=== PATIENT | male | born 1955 | race Caucasian/White ===

== ENCOUNTER 2018-02-01 13:56 | Outpatient (CLI) | payer MEDICAID, SELFPAY ==
[2018-02-02 10:08] LABS: PSA, Diagnostic 3.2 ng/ml (0-4.5)
== END 2018-02-01 14:16 ==
PROVIDERS: PCP Family Medicine; Visit Provider Urology
DX: C61 Malignant neoplasm of prostate (principal); D48.0 Neoplasm of uncertain behavior of bone and articular cartilage
CPT/HCPCS: 36415; 84153

== ENCOUNTER 2018-04-24 14:16 | Outpatient (CLI) | payer MEDICAID, SELFPAY ==
[2018-04-25 09:57] LABS: PSA, Diagnostic 8.7 ng/ml (0-4.5)
== END 2018-04-24 14:36 ==
PROVIDERS: Nurse Practitioner Gerontology; PCP Family Medicine; Visit Provider Urology
DX: C61 Malignant neoplasm of prostate (principal); C79.51 Secondary malignant neoplasm of bone
CPT/HCPCS: 36415; 84153

== ENCOUNTER 2018-05-09 12:14 | Outpatient (CLI) | payer MEDICAID, SELFPAY ==
[2018-05-09 12:44] LABS: Abs Immature Grans 0.01 k/cumm (0.0-0.09); Absolute Basophil Count 0.02 k/cumm (0.0-0.2); Absolute Lymphocyte Count 1.64 k/cumm (1.2-3.4); Absolute Monocyte Count 0.46 k/cumm (0.11-0.7); Absolute Neutrophil Count 3.09 k/cumm (1.2-6.7); Basophils % 0.4; Eosinophils % 1.9; HCT 40.9 % (40.0-50.0); Immature Grans % 0.2; Lymphocytes % 30.8; Mean Corp. HGB Concentration 34.2 g/dL (32.0-36.0); Mean Corpuscular Hemoglobin 29.2 pg (27.0-33.0); Mean Corpuscular Volume 85.4 fL (80-95); Mean Platelet Volume 9.9 fL (8.0-11.0); Monocytes % 8.6; Neutrophils % 58.1; Platelet Count 184 x1000/uL (130-400); RBC 4.79 m/cumm (4.50-6.00); RBC Distribution Width 12.4 % (11.8-14.1); White Blood Cell Count 5.32 k/cumm (4.4-10.8)
[2018-05-09 13:00] LABS: ALT 39 U/L (12-78); AST 21 U/L (15-37); Albumin 3.9 g/dL (3.4-5.0); Alkaline Phosphatase 53 U/L (46-116); Anion Gap 6.7 mmol/L (3-11); BUN 16 mg/dL (7-18); Bilirubin, Total 0.3 mg/dL (0.2-1.0); CO2 34.3 mmol/L (21.0-32.0); CREATININE 1.02 mg/dL (0.70-1.30); Chloride 103 mmol/L (98-107); Glucose 99 mg/dL (70-100); Potassium 3.9 mmol/L (3.5-5.1); Sodium 144 mmol/L (136-145); Total Protein 7.6 g/dL (6.4-8.2)
[2018-05-10 08:53] LABS: PSA, Diagnostic 8.8 ng/ml (0-4.5)
[2018-05-12 15:22] LABS: Testosterone, Total 11 ng/dL (240-950)
== END 2018-05-09 12:34 ==
PROVIDERS: PCP Family Medicine; Visit Provider Internal Medicine
DX: Z13.1 Encounter for screening for diabetes mellitus (principal); C61 Malignant neoplasm of prostate; C79.51 Secondary malignant neoplasm of bone; Z00.00 Encounter for general adult medical examination without abnormal findings
CPT/HCPCS: 36415; 80053; 82306; 84403; 83036; 84153; 85025

== ENCOUNTER 2018-05-15 00:19 | Outpatient (CLI) | payer MEDICAID, SELFPAY ==
--- NOTE | 2018-05-15 10:00 | DI.NM_ITS ---
SYMPTOMS/DIAGNOSIS: RESTAGING OF METASTATIC PROSTATE CA, C61, C79.51 WHOLE BODY BONE SCAN: Comparison is 11/03/17. Comparison CT scan is 05/15/18. There is normal activity again seen in the kidneys and urinary bladder. Increased radiotracer uptake is again seen in the right iliac bone, consistent with osseous metastatic disease. Increased radiotracer uptake is again seen in the shoulders and sternoclavicular joints bilaterally. This appears stable. Mild radiotracer uptake is again seen in the knees and feet bilaterally, which likely reflects degenerative changes. Two new areas of increased radiotracer uptake are seen in the anterior aspects of the left 8th and 9th ribs. Comparison CT scan performed the same day shows healing fractures. IMPRESSION: 1. Stable radiotracer uptake in the axial and appendicular skeleton consistent with osseous metastatic disease. 2. Two new areas of increased radiotracer uptake in the left 8th and 9th ribs. Correlation with the CT scan performed the same day shows these areas are consistent with healing fractures.
--- NOTE | 2018-05-15 10:30 | DI.CT_ITS ---
SYMPTOM/DIAGNOSIS: RESTAGING OF METASTATIC PROSTATE CA, C61, C79.51 CT CHEST, ABDOMEN AND PELVIS: Most recent CT scan comparison is from 02/22/2012 CT ABDOMEN AND PELVIS: The liver is normal in size. No evidence of an hepatic mass. The portal and superior mesenteric veins are patent. There is a stone seen within the gallbladder. No biliary ductal dilatation is present. The pancreas and peripancreatic soft tissues are unremarkable as are the spleen and adrenal glands. The kidneys show normal and symmetric enhancement. No evidence of a solid renal mass or obstruction. There is a 1.2 cm cyst arising from the lower pole of the left kidney. The urinary bladder is intact. Reproductive organs are unremarkable. The bowel shows no evidence of obstruction or inflammation. No evidence of an acute appendicitis are present. The abdominal aorta is of normal caliber. No significant abdominal or pelvic adenopathy, ascites or pneumoperitoneum is seen. Note is made of a small fat containing left inguinal hernia. There are sclerotic foci seen in the pelvis most suggestive of osseous metastatic disease. Degenerative changes are present in the spine. No acute fracture or subluxation is present. IMPRESSION: 1. Findings consistent with osseous metastatic disease 2. No intra-abdominal or pelvic metastatic disease. 3. Incidental note is made of cholelithiasis, no biliary ductal dilatation CT CHEST: No priors for comparison The thoracic aorta is of normal caliber. Heart size is within normal limits. No significant pericardial effusion seen. No significant thoracic adenopathy, pleural effusion or pneumothorax is identified. There is a 0.6 cm noncalcified pulmonary nodule in the right middle lobe. No other noncalcified pulmonary nodules are seen. No infiltrates are present. The tracheobronchial tree is unremarkable. Degenerative changes are seen in the spine. There appear to be healing fractures involving the left 8th and 9th ribs anteriorly. Sclerotic foci are seen in the upper lumbar spine. IMPRESSION; 1. Findings consistent with osseous metastatic disease 2. 0.6 cm pulmonary nodule in the right middle lobe. Comparison should be made with prior examinations 3. Healing fractures involving the left 8th and 9th ribs.
[2018-05-15] MEDS: Omnipaque 350 MG/ML 100 ML BTL IJ (10:40)
== END 2018-05-15 00:39 ==
PROVIDERS: PCP Family Medicine; Visit Provider Internal Medicine
DX: C61 Malignant neoplasm of prostate (principal); C79.51 Secondary malignant neoplasm of bone; S22.42XD Multiple fractures of ribs, left side, subsequent encounter for fracture with routine healing; K80.20 Calculus of gallbladder without cholecystitis without obstruction; R91.1 Solitary pulmonary nodule; Z12.89 Encounter for screening for malignant neoplasm of other sites
CPT/HCPCS: 74177; 78306; 71260; J3490

== ENCOUNTER 2018-06-12 14:24 | Outpatient (CLI) | payer MEDICAID, SELFPAY ==
[2018-06-12 14:50] LABS: HCT 40.2 % (40.0-50.0); HGB 13.6 g/dL (13.5-17.5); Mean Corp. HGB Concentration 33.8 g/dL (32.0-36.0); Mean Corpuscular Hemoglobin 29.1 pg (27.0-33.0); Mean Corpuscular Volume 85.9 fL (80-95); Mean Platelet Volume 9.8 fL (8.0-11.0); Platelet Count 196 x1000/uL (130-400); RBC 4.68 m/cumm (4.50-6.00); RBC Distribution Width 12.3 % (11.8-14.1); White Blood Cell Count 5.51 k/cumm (4.4-10.8)
[2018-06-12 15:08] LABS: ALT 26 U/L (12-78); AST 15 U/L (15-37); Albumin 3.7 g/dL (3.4-5.0); Alkaline Phosphatase 52 U/L (46-116); Anion Gap 4.2 mmol/L (3-11); BUN 16 mg/dL (7-18); Bilirubin, Total 0.3 mg/dL (0.2-1.0); CO2 32.8 mmol/L (21.0-32.0); CREATININE 1.19 mg/dL (0.70-1.30); Calcium 8.9 mg/dL (8.5-10.1); Chloride 104 mmol/L (98-107); Glucose 96 mg/dL (70-100); Potassium 3.9 mmol/L (3.5-5.1); Sodium 141 mmol/L (136-145); Total Protein 7.3 g/dL (6.4-8.2)
== END 2018-06-12 14:44 ==
PROVIDERS: PCP Family Medicine; Visit Provider Internal Medicine
DX: C61 Malignant neoplasm of prostate (principal); C79.51 Secondary malignant neoplasm of bone
CPT/HCPCS: 36415; 80053; 85027

== ENCOUNTER 2018-06-29 08:31 | Outpatient (CLI) | payer MEDICAID, SELFPAY ==
[2018-06-29 09:12] LABS: Abs Immature Grans 0.02 k/cumm (0.0-0.09); Absolute Basophil Count 0.03 k/cumm (0.0-0.2); Absolute Eosinophil Count 0.08 k/cumm (0.0-0.7); Absolute Lymphocyte Count 1.19 k/cumm (1.2-3.4); Absolute Monocyte Count 0.54 k/cumm (0.11-0.7); Absolute Neutrophil Count 2.64 k/cumm (1.2-6.7); Basophils % 0.7; Eosinophils % 1.8; HCT 43.4 % (40.0-50.0); HGB 14.5 g/dL (13.5-17.5); Immature Grans % 0.4; Lymphocytes % 26.4; Mean Corp. HGB Concentration 33.4 g/dL (32.0-36.0); Mean Corpuscular Hemoglobin 28.7 pg (27.0-33.0); Mean Corpuscular Volume 85.8 fL (80-95); Mean Platelet Volume 10.2 fL (8.0-11.0); Neutrophils % 58.7; Platelet Count 187 x1000/uL (130-400); RBC 5.06 m/cumm (4.50-6.00); RBC Distribution Width 12.7 % (11.8-14.1)
[2018-06-29 09:23] LABS: ALT 28 U/L (12-78); AST 19 U/L (15-37); Alkaline Phosphatase 55 U/L (46-116); Anion Gap 8.8 mmol/L (3-11); BUN 17 mg/dL (7-18); Bilirubin, Total 0.6 mg/dL (0.2-1.0); CO2 32.2 mmol/L (21.0-32.0); CREATININE 1.11 mg/dL (0.70-1.30); Calcium 9.1 mg/dL (8.5-10.1); Chloride 102 mmol/L (98-107); Glucose 76 mg/dL (70-100); Potassium 4.2 mmol/L (3.5-5.1); Sodium 143 mmol/L (136-145); Total Protein 7.9 g/dL (6.4-8.2)
[2018-06-29 09:46] LABS: Hemoglobin A1C 5.9 % (4.5-6.2)
[2018-06-30 09:57] LABS: PSA, Diagnostic 2.7 ng/ml (0-4.5)
[2018-07-02 14:58] LABS: Testosterone, Total <7.0 ng/dL (240-950)
== END 2018-06-29 08:51 ==
PROVIDERS: PCP Family Medicine; Visit Provider Internal Medicine
DX: E11.9 Type 2 diabetes mellitus without complications (principal); C61 Malignant neoplasm of prostate; C79.51 Secondary malignant neoplasm of bone
CPT/HCPCS: 36415; 80053; 84403; 83036; 84153; 85025

== ENCOUNTER 2018-08-07 01:37 | Outpatient (CLI) | payer MEDICAID, SELFPAY ==
--- NOTE | 2018-08-07 09:43 | DI.US_ITS ---
SYMPTOMS/DIAGNOSIS: DIZZINESS AND GIDDINESS, R42 CAROTID ULTRASOUND: Routine examination was performed. On the right, no significant calcific plaque is seen. No hemodynamically significant velocity elevations are present. The right vertebral artery is antegrade. On the left, there is mild calcific plaque seen in the carotid bulb. No hemodynamically significant velocity elevations are seen. The left vertebral artery is antegrade. IMPRESSION: No evidence of a hemodynamically significant cervical carotid artery stenosis.
== END 2018-08-07 01:57 ==
PROVIDERS: PCP Family Medicine; Visit Provider Family Medicine
DX: R42 Dizziness and giddiness (principal)
CPT/HCPCS: 93880

== ENCOUNTER 2018-08-15 00:43 | Outpatient (CLI) | payer MEDICAID, SELFPAY ==
--- NOTE | 2018-08-15 07:30 | MERGE_ITS ---
*[facility]* *[facility]* [address] [place] [address] Date of study: 08/15/2018 Transthoracic Echocardiography M-mode, complete 2D, complete spectral Doppler, and color Doppler *STUDY CONCLUSIONS* Summary: 1. Left ventricle: The cavity size was normal. Wall thickness was increased in a pattern of mild LVH. Systolic function was normal. The estimated ejection fraction was 60-65%. Wall motion was normal; there were no regional wall motion abnormalities. 2. Aortic valve: Trileaflet; mildly thickened, mildly calcified leaflets. There was mild to moderate stenosis. There was mild regurgitation. Peak velocity (S): 2m/sec. Mean gradient (S): 10mm Hg. VTI ratio of LVOT to aortic valve: 0.46. Valve area (VTI): 1.4cm^2. 3. Left atrium: The atrium was mildly dilated. 4. Right ventricle: The cavity size was normal. Wall thickness was normal. Systolic function was normal. 5. Tricuspid valve: There was mild-moderate regurgitation. 6. Pulmonary arteries: Pulmonary systolic pressure was mildly increased, in the range of 35mm Hg to 40mm Hg. *PATIENT PRESENTATION* Height: 177.8cm ((70in) ) S/D Pressure: 113 / 66 Weight: 95.7kg ((210.6lb) ) BSA: 2.2m^2 Test start time: 07:40 AM. Test stop time: 08:40 AM. ORDERING Shara Begum REFERRING Shara Begum PERFORMING Unknown PERFORMING [facility] SERVICE OPERATOR RT Shorty LockR)(CT), RD *PROCEDURE DATA* Procedure information: This study was interpreted by [facility]. Pertinent images and digital data are archived for permanent storage and are available for subsequent review. Comparison was made to the study of 07/03/2015. Study status: Routine. Transthoracic echocardiography. M-mode, complete 2D, complete spectral Doppler, and color Doppler. A Transthoracic Echocardiogram was performed. Scanning was performed from the parasternal, apical, subcostal, and suprasternal notch acoustic windows. Images were obtained using an [id number] cardiac ultrasound machine. Image quality was adequate. Study completion: The patient tolerated the procedure well. There were no complications. History: PMH: Hypotension i95.9. *CARDIAC ANATOMY* Left ventricle: The cavity size was normal. Wall thickness was increased in a pattern of mild LVH. Systolic function was normal. The estimated ejection fraction was 60-65%. Wall motion was normal; there were no regional wall motion abnormalities. Findings consistent with diastolic dysfunction. Aortic valve: Trileaflet; mildly thickened, mildly calcified leaflets. Valve mobility was restricted. Doppler: There was mild to moderate stenosis. There was mild regurgitation. VTI ratio of LVOT to aortic valve: 0.46. Valve area (VTI): 1.4cm^2. Indexed valve area (VTI): 0.7cm^2/m^2. Peak velocity ratio of LVOT to aortic valve: 0.48. Valve area (Vmax): 1.5cm^2. Indexed valve area (Vmax): 0.7cm^2/m^2. Mean velocity ratio of LVOT to aortic valve: 0.45. Valve area (Vmean): 1.4cm^2. Indexed valve area (Vmean): 0.6cm^2/m^2. Mean gradient (S): 10mm Hg. Peak gradient (S): 15.7mm Hg. Aorta: Aortic root: The aortic root was normal in size. Ascending aorta: The ascending aorta was normal in size. Mitral valve: Mildly calcified annulus. Mobility was not restricted. Doppler: Transvalvular velocity was within the normal range. There was no evidence for stenosis. There was trivial regurgitation. Valve area by pressure half-time: 3.5cm^2. Indexed valve area by pressure half-time: 1.6cm^2/m^2. Peak gradient (D): 3.9mm Hg. Left atrium: The atrium was mildly dilated. Right ventricle: The cavity size was normal. Wall thickness was normal. Systolic function was normal. Pulmonic valve: Doppler: Transvalvular velocity was within the normal range. There was no evidence for stenosis. There was no significant regurgitation. Peak gradient (S): 3.5mm Hg. Tricuspid valve: Structurally normal valve. Doppler: Transvalvular velocity was within the normal range. There was no evidence for stenosis. There was mild-moderate regurgitation. Pulmonary artery: Pulmonary systolic pressure was mildly increased, in the range of 35mm Hg to 40mm Hg. Right atrium: The atrium was normal in size. Pericardium: There was no pericardial effusion. Systemic veins: Inferior vena cava: Well visualized. The vessel was patent and normal in size. The respirophasic diameter changes were in the normal range (greater than or equal to 50%). Baseline ECG: Normal sinus rhythm. Measurements Left ventricle Value Reference LV ID, ED, PLAX 5.3 cm 3.5 - 6.0 LV ID, ES, PLAX 3.4 cm 2.1 - 4.0 LV PW thickness, ED, PLAX 1.2 cm LV end-diastolic volume, 1-p A2C 110 ml LV ejection fraction, 1-p A2C 64 % LV end-diastolic volume, 1-p A4C 135 ml LV ejection fraction, 1-p A4C 62 % LV e', lateral 0.06 m/sec LV E/e', lateral 16 LV e', medial 0.056 m/sec LV E/e', medial 17 LV e', average 0.058 m/sec LV E/e', average 17 Ventricular septum Value Reference IVS thickness, ED, PLAX 1.2 cm LVOT Value Reference LVOT ID, A-P 2.0 cm LVOT area 3.1 cm^2 LVOT peak velocity, S 0.96 m/sec LVOT mean velocity, S 0.69 m/sec LVOT VTI, S 21.0 cm LVOT peak gradient, S 3.7 mm Hg LVOT mean gradient, S 2.2 mm Hg Stroke volume (SV), LVOT DP 66 ml Stroke index (SV/bsa), LVOT DP 30 ml/m^2 Aortic valve Value Reference Aortic valve peak velocity, S 2 m/sec Aortic valve mean velocity, S 1.53 m/sec Aortic valve VTI, S 46.0 cm Aortic mean gradient, S 10 mm Hg Aortic peak gradient, S 15.7 mm Hg VTI ratio, LVOT/AV 0.46 Aortic valve area, VTI 1.4 cm^2 Velocity ratio, peak, LVOT/AV 0.48 Aortic valve area, peak velocity 1.5 cm^2 Velocity ratio, mean, LVOT/AV 0.45 Aortic valve area, mean velocity 1.4 cm^2 Aortic valve area/bsa, mean velocity 0.6 cm^2/m^2 Aorta Value Reference Aortic root ID, ED 3.5 cm Ascending aorta ID, A-P, S 3.4 cm Left atrium Value Reference LA ID, A-P, ES 3.4 cm LA ID/bsa, A-P 1.5 cm/m^2 <=2.2 LA area, ES, A4C (H) 23.6 cm^2 8.8 - 23.4 LA area, ES, A2C 21 cm^2 LA volume/bsa, ES, 1-p A4C 40 ml/m^2 LA volume, ES, 2-p 69 ml LA volume/bsa, ES, 2-p 31 ml/m^2 LA/aortic root ratio 0.96 Mitral valve Value Reference Mitral E-wave peak velocity 0.98 m/sec Mitral A-wave peak velocity 1.02 m/sec Mitral deceleration time 218 ms 150 - 230 Mitral pressure half-time 63 ms Mitral peak gradient, D 3.9 mm Hg Mitral E/A ratio, peak 0.96 Mitral valve area, PHT, DP 3.5 cm^2 Pulmonary veins Value Reference Pulmonary vein peak velocity, S 0.6 m/sec Pulmonary vein peak velocity, D 0.54 m/sec Pulmonary vein velocity ratio, peak, 1.12 S/D Pulmonary vein A-wave reversal peak 0.31 m/sec velocity Tricuspid valve Value Reference Tricuspid regurg peak velocity 2.8 m/sec Tricuspid peak RV-RA gradient 32.2 mm Hg Right atrium Value Reference RA area, ES, A4C 18 cm^2 8.3 - 19.5 Pulmonic valve Value Reference Pulmonic peak gradient, S 3.5 mm Hg Legend: (L) and (H) joey values outside specified reference range. I have personally reviewed the images and have reviewed and edited the reported findings. Electronically signed by Andrez Morales 08/15/2018 10:47
== END 2018-08-15 01:03 ==
PROVIDERS: PCP Family Medicine; Visit Provider Family Medicine
DX: I95.9 Hypotension, unspecified (principal); I35.2 Nonrheumatic aortic (valve) stenosis with insufficiency; I36.1 Nonrheumatic tricuspid (valve) insufficiency
CPT/HCPCS: 93306

== ENCOUNTER 2018-08-16 14:26 | Outpatient (CLI) | payer MEDICAID, SELFPAY ==
[2018-08-16 14:44] LABS: Abs Immature Grans 0.02 k/cumm (0.0-0.09); Absolute Basophil Count 0.02 k/cumm (0.0-0.2); Absolute Eosinophil Count 0.06 k/cumm (0.0-0.7); Absolute Lymphocyte Count 1.47 k/cumm (1.2-3.4); Absolute Monocyte Count 0.71 k/cumm (0.11-0.7); Absolute Neutrophil Count 5.81 k/cumm (1.2-6.7); Basophils % 0.2; Eosinophils % 0.7; HGB 13.2 g/dL (13.5-17.5); Immature Grans % 0.2; Lymphocytes % 18.2; Mean Corp. HGB Concentration 34.7 g/dL (32.0-36.0); Mean Corpuscular Hemoglobin 29.7 pg (27.0-33.0); Mean Corpuscular Volume 85.4 fL (80-95); Mean Platelet Volume 9.9 fL (8.0-11.0); Monocytes % 8.8; Neutrophils % 71.9; Platelet Count 198 x1000/uL (130-400); RBC 4.45 m/cumm (4.50-6.00); RBC Distribution Width 12.7 % (11.8-14.1); White Blood Cell Count 8.09 k/cumm (4.4-10.8)
[2018-08-16 15:03] LABS: ALT 22 U/L (12-78); AST 19 U/L (15-37); Albumin 3.9 g/dL (3.4-5.0); Alkaline Phosphatase 65 U/L (46-116); Anion Gap 8.1 mmol/L (3-11); BUN 17 mg/dL (7-18); Bilirubin, Total 0.4 mg/dL (0.2-1.0); CO2 28.9 mmol/L (21.0-32.0); CREATININE 0.99 mg/dL (0.70-1.30); Calcium 9.3 mg/dL (8.5-10.1); Chloride 104 mmol/L (98-107); Glucose 125 mg/dL (70-100); Potassium 3.9 mmol/L (3.5-5.1); Sodium 141 mmol/L (136-145); Total Protein 7.6 g/dL (6.4-8.2)
[2018-08-17 09:57] LABS: PSA, Diagnostic 3.2 ng/ml (0-4.5)
[2018-08-19 07:48] LABS: Testosterone, Total <7.0 ng/dL (240-950)
== END 2018-08-16 14:46 ==
PROVIDERS: PCP Family Medicine; Visit Provider Internal Medicine
DX: C61 Malignant neoplasm of prostate (principal); C79.51 Secondary malignant neoplasm of bone
CPT/HCPCS: 36415; 80053; 84403; 84153; 85025

== ENCOUNTER 2018-08-17 00:13 | Outpatient (CLI) | payer MEDICAID, SELFPAY ==
--- NOTE | 2018-08-17 13:00 | ETT_ITS ---
*[facility]* *[facility]* [address] [place] [address] Stress Electrocardiography Tye protocol Date of study: 08/17/2018 *PATIENT PRESENTATION* Height: 177.8cm (70in) Blood Pressure: Weight: 96.4kg (212lb) BSA: 2.21m^2 Referring physician: Shara Begum Ordering physician: Shara Begum Impressions: - Normal study after maximal exercise. - Excellent exercise capacity. - No stress-induced arrhythmia. Summary: 1. Stress ECG conclusions: The stress ECG is negative. 2. Stress: The target heart rate was achieved. There is a normal resting blood pressure with an appropriate response to stress. The patient experienced no chest pain during stress. Exercise capacity is above normal for age. History: REASON FOR TESTING: DIZZYNESS WITH EXERCISING AND LOW BLOOD PRESSURES AT END OF WORKOUT. 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 HE REPORTS THAT DURING THE INTENSE PART OF HIS STRENGTH TRAINING HE WILL GET FOGGY, DIZZYNESS--TO THE POINT WHERE HE HAS HAD TO SIT DOWN AND IT TAKES HIM 5-10 MINUTES TO RECOVER. HE ALSO REPORTS LOW BLOOD PRESSURES AT THE END OF HIS WORKOUT. HE DENIES CHEST PAIN AND ANY ASSOCIATED SYMPTOMS UPON ARRIVAL TO TESTING TODAY. SIGNIFICANT PAST MEDICAL HISTORY: AORTIC STENOSIS, TRICUSPID REGURGITATION, MILD PULMONARY HYPERTENTION, METASTATIC PROSTATE CANCER. SMOKING STATUS:NEVER. EXERCISE ROUTINE: PATIENT IS VERY ACTIVE WITH TRAINING AT [facility] DESCRIBED ABOVE, AND WITH DAILY DOG DRAINING. Risk factors: Family history of coronary artery disease. Dyslipidemia. Cholesterol: 188mg/dl. HDL: 45mg/dl. LDL: 132mg/dl. Triglycerides: 86mg/dl. ALLERGIES: NO KNOWN ALLERGIES. MEDICATIONS: TAMULOSIN 0.8 MG DAILY, ABIRATERONE 1000 MG DAILY, PREDNISONE 5 MG DAILY, LUPRON INJECTION MONTHLY. Protocol: Tye protocol. Baseline ECG: SINUS RHYTHM. 68 BPM. Stress protocol: + +---+ + !Stage !HR !BP (mmHg) ! + +---+ + !Baseline supine !68 !120/80 (93) ! + +---+ + !Baseline standing !78 !108/74 (85) ! + +---+ + !Stage I; 1.7mph, 10degrees; 3 min !114!110/80 (90) ! + +---+ + !Stage II; 2.5mph, 12degrees; 3 min !124!118/80 (93) ! + +---+ + !Stage III; 3.4mph, 14degrees; 3 min!136!140/78 (99) ! + +---+ + !Peak stress !154! ! + +---+ + !Recovery; 1 min !132!190/70 (110)! + +---+ + !Recovery; 3 min !90 !170/80 (110)! + +---+ + !Recovery; 6 min !94 !142/80 (101)! + +---+ + !Recovery; 9 min !95 !120/80 (93) ! + +---+ + !Recovery; 12 min !92 !108/78 (88) ! + +---+ + * Stress results: STRESS TEST ENDED IN 12 MINUTES 34 SECONDS DUE TO FATIGUE. NORMAL HEART RATE AND BLOOD PRESSURE. MAX HEART RATE: 154. 98 % OF TARGET HEART RATE ACHIEVED. MET'S: 13.87. NO ECTOPY. NO ANGINA. NO SIGNIFICANT ST SEGMENT CHANGES. FUNCTIONAL CAPACITY: ABOVE AVERAGE. Maximal heart rate during stress was 154bpm (98% of maximal predicted heart rate). The maximal predicted heart rate was 157bpm. The target heart rate was achieved. There is a normal resting blood pressure with an appropriate response to stress. The rate-pressure product for the peak heart rate and blood pressure was 73240iu Hg/min. The patient experienced no chest pain during stress. Exercise capacity is above normal for age. Stress ECG: The stress ECG is negative. Study data: Georgi Major MD supervised and was readily available during the procedure. This study was interpreted by [facility]. Study status: Routine. Consent: The risks, benefits, and alternatives to the procedure were explained to the patient and informed consent was obtained. Procedure: Initial setup. A baseline ECG was recorded. Surface ECG leads and manual cuff blood pressure measurements were monitored. Heart sounds: Normal. Lung sounds: Normal. Treadmill exercise testing was performed using the Tye protocol. Study completion: The patient tolerated the procedure well and was discharged from the lab. Discharge: The patient left the laboratory in stable condition. Birthdate: Patient birthdate: 1955. Sex: Gender: male. Study date: Study date: 08/17/2018. Study time: 00:01 AM. Signature Documentation: The Stress ECG portion of this study was interpreted by Georgi Major MD. Electronically signed by Georgi Major 08/17/2018 16:42
== END 2018-08-17 00:33 ==
PROVIDERS: PCP Family Medicine; Visit Provider Family Medicine
DX: R42 Dizziness and giddiness (principal); I95.9 Hypotension, unspecified; E78.5 Hyperlipidemia, unspecified; Z82.49 Family history of ischemic heart disease and other diseases of the circulatory system
CPT/HCPCS: 93017

== ENCOUNTER 2018-09-19 00:11 | Outpatient (CLI) | payer MEDICAID, SELFPAY ==
--- NOTE | 2018-09-19 10:00 | DI.NM_ITS ---
SYMPTOMS/DIAGNOSIS: RESTAGING OF METASTATIC PROSTATE CA, C61, C79.51 WHOLE BODY BONE SCAN: Comparison is made with April,. 22.0 mCi of technetium 99m MDP were administered IV. Whole body images and oblique views of the pelvis and lateral views of the ribs were performed. Again noted is increased activity in two adjacent anterior left lower ribs consistent with old fractures. The activity has decreased when compared with the previous exam. Increased activity is again noted in the right ilium. The area of activity has increased when compared with the previous exam. There is mildly increased activity in the right 1st MTP joint, presumably degenerative. No new areas of increased activity are seen. IMPRESSION: Increased activity in the right ilium, more prominent when compared with the previous exam.
[2018-09-19 10:38] LABS: Abs Immature Grans 0.01 k/cumm (0.0-0.09); Absolute Basophil Count 0.01 k/cumm (0.0-0.2); Absolute Eosinophil Count 0.07 k/cumm (0.0-0.7); Absolute Monocyte Count 0.49 k/cumm (0.11-0.7); Absolute Neutrophil Count 3.74 k/cumm (1.2-6.7); Basophils % 0.2; Eosinophils % 1.3; HCT 37.8 % (40.0-50.0); HGB 12.9 g/dL (13.5-17.5); Immature Grans % 0.2; Lymphocytes % 17.2; Mean Corp. HGB Concentration 34.1 g/dL (32.0-36.0); Mean Corpuscular Hemoglobin 29.7 pg (27.0-33.0); Mean Corpuscular Volume 86.9 fL (80-95); Mean Platelet Volume 10.1 fL (8.0-11.0); Monocytes % 9.4; Neutrophils % 71.7; Platelet Count 148 x1000/uL (130-400); RBC 4.35 m/cumm (4.50-6.00); RBC Distribution Width 12.5 % (11.8-14.1); White Blood Cell Count 5.22 k/cumm (4.4-10.8)
[2018-09-19 10:51] LABS: ALT 26 U/L (12-78); AST 23 U/L (15-37); Albumin 3.7 g/dL (3.4-5.0); Alkaline Phosphatase 54 U/L (46-116); Anion Gap 7.2 mmol/L (3-11); BUN 15 mg/dL (7-18); Bilirubin, Total 0.5 mg/dL (0.2-1.0); CO2 30.8 mmol/L (21.0-32.0); CREATININE 0.97 mg/dL (0.70-1.30); Calcium 8.7 mg/dL (8.5-10.1); Chloride 103 mmol/L (98-107); Glucose 93 mg/dL (70-100); Potassium 3.3 mmol/L (3.5-5.1); Sodium 141 mmol/L (136-145)
--- NOTE | 2018-09-19 11:58 | DI.CT_ITS ---
SYMPTOMS/DIAGNOSIS: RESTAGING OF METASTATIC PROSTATE CA, C61, C79.51 CT OF THE CHEST, ABDOMEN AND PELVIS: Comparison is made with April,. CHEST CT: The heart size is normal. No adenopathy, infiltrate or effusion is seen. There has been interval decrease in size of previously noted nodule in the right middle lobe, now barely visible. No new nodules are seen. Old fractures of the anterior left 8th and 9th ribs are noted. IMPRESSION: Decreased size of previously noted right middle lobe nodule, now barely visible. No new findings are identified. ABDOMEN AND PELVIS: There is a stable small sclerotic focus in the L2 vertebral body. There has been interval increase in extent of the previously noted right iliac wing lesion, now extending inferiorly to the level of the acetabulum. A small right sacral sclerotic focus is mildly increased when compared with the previous exam. Areas of sclerosis are again noted in both pubic rami, right greater than left, which appear stable. The liver, spleen, pancreas, kidneys and adrenals are unremarkable. Gallstone is again noted. The prostate is normal in size. There is mild bladder wall thickening. No enlarged abdominal or pelvic lymph nodes are seen. There is a stable left fatty-containing inguinal hernia. The bowel is unremarkable. IMPRESSION: Increased size of right iliac wing bony metastases, as well as right sacral metastasis. The remaining sclerotic foci appear stable in size.
[2018-09-19] MEDS: Omnipaque 350 MG/ML 100 ML BTL IJ (12:04)
[2018-09-19] MEDS: Normal Saline Flush 10 ML SYR IVP (12:06)
[2018-09-19 12:39] LABS: Hemoglobin A1C 5.6 % (4.5-6.2)
[2018-09-20 09:13] LABS: PSA, Diagnostic 5.7 ng/ml (0-4.5)
[2018-09-21 16:37] LABS: Testosterone, Total <7.0 ng/dL (240-950)
== END 2018-09-19 00:31 ==
PROVIDERS: PCP Family Medicine; Visit Provider Internal Medicine
DX: C61 Malignant neoplasm of prostate (principal); C79.51 Secondary malignant neoplasm of bone; E11.9 Type 2 diabetes mellitus without complications; R91.1 Solitary pulmonary nodule
CPT/HCPCS: 74177; 78306; 80053; 84403; 71260; 83036; 84153; 85025; J3490

== ENCOUNTER 2018-11-01 14:18 | Outpatient (CLI) | payer MEDICAID, SELFPAY ==
[2018-11-01 14:41] LABS: Abs Immature Grans 0.02 k/cumm (0.0-0.09); Absolute Basophil Count 0.03 k/cumm (0.0-0.2); Absolute Eosinophil Count 0.08 k/cumm (0.0-0.7); Absolute Lymphocyte Count 1.47 k/cumm (1.2-3.4); Absolute Monocyte Count 0.59 k/cumm (0.11-0.7); Absolute Neutrophil Count 4.01 k/cumm (1.2-6.7); Basophils % 0.5; Eosinophils % 1.3; HCT 39.6 % (40.0-50.0); HGB 13.5 g/dL (13.5-17.5); Immature Grans % 0.3; Lymphocytes % 23.7; Mean Corp. HGB Concentration 34.1 g/dL (32.0-36.0); Mean Corpuscular Hemoglobin 29.3 pg (27.0-33.0); Mean Corpuscular Volume 86.1 fL (80-95); Mean Platelet Volume 9.8 fL (8.0-11.0); Monocytes % 9.5; Neutrophils % 64.7; Platelet Count 201 x1000/uL (130-400); RBC Distribution Width 12.4 % (11.8-14.1)
[2018-11-01 14:54] LABS: ALT 26 U/L (12-78); AST 22 U/L (15-37); Albumin 3.8 g/dL (3.4-5.0); Alkaline Phosphatase 55 U/L (46-116); Anion Gap 5.4 mmol/L (3-11); BUN 19 mg/dL (7-18); Bilirubin, Total 0.3 mg/dL (0.2-1.0); CO2 28.6 mmol/L (21.0-32.0); CREATININE 0.98 mg/dL (0.70-1.30); Calcium 9.3 mg/dL (8.5-10.1); Chloride 103 mmol/L (98-107); Glucose 113 mg/dL (70-100); Potassium 3.8 mmol/L (3.5-5.1); Sodium 137 mmol/L (136-145); Total Protein 7.1 g/dL (6.4-8.2)
[2018-11-03 10:10] LABS: PSA, Diagnostic 11.1 ng/ml (0-4.5)
[2018-11-04 10:26] LABS: Testosterone, Total <7.0 ng/dL (240-950)
== END 2018-11-01 14:38 ==
PROVIDERS: PCP Family Medicine; Visit Provider Internal Medicine
DX: C61 Malignant neoplasm of prostate (principal); C79.51 Secondary malignant neoplasm of bone
CPT/HCPCS: 36415; 80053; 84403; 84153; 85025

== ENCOUNTER 2019-01-17 15:05 | Outpatient (CLI) | payer MEDICAID, SELFPAY ==
[2019-01-17 15:31] LABS: CREATININE 1.01 mg/dL (0.70-1.30); Calcium 8.5 mg/dL (8.5-10.1)
== END 2019-01-17 15:25 ==
PROVIDERS: PCP Family Medicine; Visit Provider Internal Medicine
DX: C61 Malignant neoplasm of prostate (principal); C79.51 Secondary malignant neoplasm of bone
CPT/HCPCS: 36415; 82310; 82565

== ENCOUNTER 2019-01-25 00:36 | Outpatient (CLI) | payer MEDICAID, SELFPAY ==
--- NOTE | 2019-01-25 09:00 | DI.NM_ITS ---
SYMPTOM/DIAGNOSIS: METASTATIC PROSTATE CA TO BONE, C61,C79.51, RESTAGING EXAM WHOLE BODY BONE SCAN: Comparison is made with 09/19/18. Comparison CT scans are 09/19/18 and 01/25/19. The patient received 24.5 millicuries of Technetium 99 M MDP and whole body imaging was performed. There is activity seen in the kidneys and urinary bladder. There is increased uptake seen in the left twelfth rib. This corresponds to a subtle area of increased sclerosis involving the posterior aspect of the left twelfth rib on the CT scan from the same day. This was not apparent on the prior CT or nuclear medicine from 09/19/18. There is increased uptake again seen in the right iliac bone consistent with the area of increased sclerosis on the CT scans. There are new areas of increased uptake seen in the right ilium which correspond to new areas of increased sclerosis on the CT scan from 01/25/19. There is a round focus of increased radiotracer uptake overlying the right sacrum. This corresponds to a focal round sclerotic lesion in the right sacrum. This was present on the prior CT scan. There is another new focus of radiotracer uptake in the right aspect of a mid vertebral body. It appears to correspond to a sclerotic focus on the right aspect of the L 2 vertebral body. This area was present on the prior CT scan from 09/19/18 but now shows increased radiotracer uptake. IMPRESSION: 1. New areas of increased uptake in the left twelfth rib and the right ischium consistent with new osseous metastatic disease. 2. Areas of increased uptake in the L 2 vertebral body and the right sacrum corresponding to old sclerotic foci. 3. Increased radiotracer uptake in the right iliac bone which was present on the prior examination.
--- NOTE | 2019-01-25 10:00 | DI.CT_ITS ---
SYMPTOM/DIAGNOSIS: METASTATIC PROSTATE CA TO BONE C61, C79.51 CT CHEST, ABDOMEN AND PELVIS: Comparison exam is 09/19/18 CT ABDOMEN AND PELVIS: The liver is normal in size. No suspicious hepatic mass seen. The portal, superior mesenteric and splenic veins are patent. There is a stone in the gallbladder. No biliary ductal dilatation is present. The pancreas, spleen and adrenal glands are unremarkable. The kidneys show normal and symmetric enhancement. No solid renal mass is seen. There is a cyst in the lower pole of the left kidney. The urinary bladder is intact and unremarkable as is the prostate gland. The abdominal aorta is of normal caliber. No aneurysmal dilatation seen. No significant abdominal or pelvic adenopathy, ascites or pneumoperitoneum is present. Note is made of a fat containing left inguinal hernia. The bowel shows no evidence of obstruction or inflammation. There is increased sclerosis seen in the right ischial tuberosity not present on the prior examination. Suspicious for progression of osseous metastatic disease. The remaining visualized osseous lesions appear stable. Degenerative changes are seen in the spine. No acute fracture or subluxation is present. IMPRESSION: Findings of osseous metastatic disease. New increased area of scleosis involving the right ischial tuberosity suspicious for progression of disease. CT CHEST: The thoracic aorta is of normal caliber. The heart size is within normal limits. No significant pericardial effusion is present. Calcification of the mitral valve is noted. No significant thoracic adenopathy, pleural effusion or pneumothorax is identified. The right middle lobe pulmonary nodule is unchanged compared to 09/19/18. No new pulmonary nodules are appreciated. No consolidating infiltrates are seen. The tracheobronchial tree is unremarkable. There are old healed left 8th and 9th rib fractures. Degenerative changes are present in the spine. IMPRESSION: Stable right middle lobe pulmonary nodule.
[2019-01-25 10:05] LABS: Abs Immature Grans 0.02 k/cumm (0.0-0.09); Absolute Basophil Count 0.06 k/cumm (0.0-0.2); Absolute Eosinophil Count 0.35 k/cumm (0.0-0.7); Absolute Monocyte Count 0.53 k/cumm (0.11-0.7); Absolute Neutrophil Count 2.57 k/cumm (1.2-6.7); Basophils % 1.3; Eosinophils % 7.4; HCT 38.9 % (40.0-50.0); Immature Grans % 0.4; Lymphocytes % 25.4; Mean Corp. HGB Concentration 33.4 g/dL (32.0-36.0); Mean Corpuscular Hemoglobin 28.5 pg (27.0-33.0); Mean Corpuscular Volume 85.3 fL (80-95); Mean Platelet Volume 9.5 fL (8.0-11.0); Monocytes % 11.2; Neutrophils % 54.3; Platelet Count 216 x1000/uL (130-400); RBC 4.56 m/cumm (4.50-6.00); RBC Distribution Width 12.2 % (11.8-14.1); White Blood Cell Count 4.73 k/cumm (4.4-10.8)
[2019-01-25 10:13] LABS: ALT 26 U/L (16-63); AST 25 U/L (15-37); Albumin 3.7 g/dL (3.4-5.0); Alkaline Phosphatase 78 U/L (46-116); Anion Gap 8.2 mmol/L (3-11); BUN 15 mg/dL (7-18); Bilirubin, Total 0.4 mg/dL (0.2-1.0); CO2 29.8 mmol/L (21.0-32.0); CREATININE 0.87 mg/dL (0.70-1.30); Calcium 8.5 mg/dL (8.5-10.1); Chloride 103 mmol/L (98-107); Glucose 102 mg/dL (70-100); Potassium 3.9 mmol/L (3.5-5.1); Sodium 141 mmol/L (136-145); Total Protein 7.3 g/dL (6.4-8.2)
[2019-01-25] MEDS: Omnipaque 350 MG/ML 100 ML BTL IJ (10:39)
[2019-01-25] MEDS: Omnipaque 350 MG/ML 50 ML BTL PO (10:40)
[2019-01-25] MEDS: Breeza Beverage 473 ML BTL PO ×2 (10:40→10:41)
[2019-01-26 09:46] LABS: PSA, Diagnostic 52.3 ng/ml (0-4.5)
[2019-01-27 13:44] LABS: Testosterone, Total <7.0 ng/dL (240-950)
== END 2019-01-25 00:56 ==
PROVIDERS: PCP Family Medicine; Visit Provider Internal Medicine
DX: C61 Malignant neoplasm of prostate (principal); C79.51 Secondary malignant neoplasm of bone; R91.1 Solitary pulmonary nodule; Z12.89 Encounter for screening for malignant neoplasm of other sites
CPT/HCPCS: 74177; 78306; 80053; 84403; 71260; 84153; 85025; J3490; Q9967

== ENCOUNTER 2019-03-19 10:13 | Outpatient (CLI) | payer MEDICAID, SELFPAY ==
[2019-03-19 10:38] LABS: Abs Immature Grans 0.03 k/cumm (0.0-0.09); Absolute Basophil Count 0.03 k/cumm (0.0-0.2); Absolute Eosinophil Count 0.13 k/cumm (0.0-0.7); Absolute Lymphocyte Count 1.08 k/cumm (1.2-3.4); Absolute Monocyte Count 0.44 k/cumm (0.11-0.7); Absolute Neutrophil Count 2.75 k/cumm (1.2-6.7); Basophils % 0.7; Eosinophils % 2.9; HCT 40.6 % (40.0-50.0); HGB 13.6 g/dL (13.5-17.5); Immature Grans % 0.7; Lymphocytes % 24.2; Mean Corp. HGB Concentration 33.5 g/dL (32.0-36.0); Mean Corpuscular Hemoglobin 28.6 pg (27.0-33.0); Mean Corpuscular Volume 85.3 fL (80-95); Mean Platelet Volume 9.3 fL (8.0-11.0); Monocytes % 9.9; Neutrophils % 61.6; Platelet Count 233 x1000/uL (130-400); RBC 4.76 m/cumm (4.50-6.00); RBC Distribution Width 12.5 % (11.8-14.1); White Blood Cell Count 4.46 k/cumm (4.4-10.8)
[2019-03-19 11:25] LABS: ALT 22 U/L (16-63); AST 21 U/L (15-37); Albumin 3.8 g/dL (3.4-5.0); Alkaline Phosphatase 106 U/L (46-116); Anion Gap 9.6 mmol/L (3-11); BUN 12 mg/dL (7-18); Bilirubin, Total 0.3 mg/dL (0.2-1.0); CO2 30.4 mmol/L (21.0-32.0); CREATININE 1.03 mg/dL (0.70-1.30); Calcium 8.9 mg/dL (8.5-10.1); Chloride 103 mmol/L (98-107); Glucose 93 mg/dL (70-100); Potassium 4.1 mmol/L (3.5-5.1); Sodium 143 mmol/L (136-145); Total Protein 7.5 g/dL (6.4-8.2)
[2019-03-20 12:20] LABS: PSA, Diagnostic 82.4 ng/ml (0-4.5)
[2019-03-21 07:11] LABS: Testosterone, Total <7.0 ng/dL (240-950)
== END 2019-03-19 10:33 ==
PROVIDERS: PCP Family Medicine; Visit Provider Internal Medicine
DX: C61 Malignant neoplasm of prostate (principal); C79.51 Secondary malignant neoplasm of bone
CPT/HCPCS: 36415; 80053; 84403; 84153; 85025

== ENCOUNTER 2019-04-27 01:38 | Outpatient (CLI) | payer MEDICAID, SELFPAY ==
--- NOTE | 2019-04-27 09:30 | DI.NM_ITS ---
EXAM: NM BONE SCAN WHOLE BODY GRP CLINICAL HISTORY: MALIGNANT NEOPLASM OF PROSTATE METASTATIC TO BONE C61, C79.51, RESTAGING. COMPARISON: WHOLE BODY BONE SCAN from 01/25/2019 EXAMINATION: 23 millicuries of technetium 99 labeled methylene diphosphonate was injected intravenou sly with delayed imaging of the whole body. FINDINGS: Examination is compared with most recent prior bone scan of January 25. There are new areas of incr eased uptake in what appears to be right 9th rib and left 3rd rib posteriorly, which were not present on the prior examination. Possible left 9th rib area of increased uptake seen laterally and additio gentry possible 10th rib right focus of increased uptake seen anterolaterally. Areas of previously noted increased uptake in the pelvis seen on the prior examination show increased intensity and increased size of lesions in comparison with the previous examination. There are also multiple new areas of increased uptake in the lumbar spine. Probable new right femoral intertrochan teric lesion noted as well. IMPRESSION: Multiple new areas of abnormal uptake seen in ribs, lumbar spine, pelvis and right femur. Increased intensity and number of pelvic lesions since the prior examination. Findings are consistent with mul tiple new and worsening areas of bony metastasis.
== END 2019-04-27 01:58 ==
PROVIDERS: PCP Family Medicine; Visit Provider Internal Medicine
DX: C61 Malignant neoplasm of prostate (principal); C79.51 Secondary malignant neoplasm of bone
CPT/HCPCS: 78306

== ENCOUNTER 2019-05-02 00:47 | Outpatient (CLI) | payer MEDICAID, SELFPAY ==
[2019-05-02] MEDS: Omnipaque 350 MG/ML 50 ML BTL IJ (11:53)
[2019-05-02 12:10] LABS: Abs Immature Grans 0.03 k/cumm (0.0-0.09); Absolute Basophil Count 0.03 k/cumm (0.0-0.2); Absolute Lymphocyte Count 1.34 k/cumm (1.2-3.4); Absolute Monocyte Count 0.62 k/cumm (0.11-0.7); Absolute Neutrophil Count 4.37 k/cumm (1.2-6.7); Basophils % 0.5; Eosinophils % 1.5; Immature Grans % 0.5; Lymphocytes % 20.6; Mean Corp. HGB Concentration 34.2 g/dL (32.0-36.0); Mean Corpuscular Hemoglobin 28.4 pg (27.0-33.0); Mean Corpuscular Volume 83.2 fL (80-95); Mean Platelet Volume 8.6 fL (8.0-11.0); Monocytes % 9.6; Neutrophils % 67.3; Platelet Count 276 x1000/uL (130-400); RBC 4.57 m/cumm (4.50-6.00); RBC Distribution Width 12.3 % (11.8-14.1); White Blood Cell Count 6.49 k/cumm (4.4-10.8)
[2019-05-02 12:42] LABS: ALT 19 U/L (16-63); AST 31 U/L (15-37); Albumin 3.9 g/dL (3.4-5.0); Alkaline Phosphatase 155 U/L (46-116); Anion Gap 8.9 mmol/L (3-11); BUN 13 mg/dL (7-18); Bilirubin, Total 0.3 mg/dL (0.2-1.0); CO2 28.1 mmol/L (21.0-32.0); CREATININE 0.88 mg/dL (0.70-1.30); Calcium 8.5 mg/dL (8.5-10.1); Chloride 103 mmol/L (98-107); Glucose 98 mg/dL (74-106); Potassium 3.8 mmol/L (3.5-5.1); Sodium 140 mmol/L (136-145); Total Protein 8.1 g/dL (6.4-8.2)
[2019-05-02] MEDS: Omnipaque 350 MG/ML 100 ML BTL IJ (13:30)
[2019-05-02] MEDS: Breeza Beverage 473 ML BTL PO (13:33)
--- NOTE | 2019-05-02 13:33 | DI.CT_ITS ---
EXAM: CT CHEST/ABD/PEL W CLINICAL HISTORY: MALIGNANT NEOPLASM OF PROSTATE METASTATIC TO BONE C61, C79.51 TECHNIQUE: Post IV and oral contrast. COMPARISON: RENAL COLIC WO CONTRAST from 02/22/2012 CT CHEST/ABD/PEL W from 05/15/2018 CT CHEST/ABD/PEL W from 01/25/2019 NM BONE SCAN WHOLE BODY GRP from 04/27/2019 NM BONE SCAN WHOLE BODY GRP from 04/27/2019 FINDINGS: CHEST CT: There is a stable 4 millimeter right middle lobe pulmonary nodule. No new pulmonary nodule s are seen. There is no evidence of adenopathy, infiltrate, pleural or pericardial effusion. No lyt ic or blastic bony lesions are seen. ABDOMEN AND PELVIC CT: Liver, spleen, pancreas, kidneys and adrenals are unremarkable. A gallstone i s again noted. The appendix appears normal. There is a moderate to increased quantity of stool. Th ere is no bowel wall thickening, free air or free fluid. There is a fatty-containing left inguinal h ernia. The patient appears to be status post prostatectomy. The bladder is mildly distended. No fo johanne masses seen. No adenopathy is identified. There is now sclerosis in the left 12th rib. There a re old left anterior 8th and 9th rib fractures. There is increasing sclerosis in the left ilium and increasing size of areas of sclerosis in the right sacrum, as well as involvement of the right acetab ulum and increased involvement of the right ischiopubic ramus. There is stable diffuse increased scl erosis seen in the right pedicle, transverse process of L3 as well as right side of the L4 vertebral body near the pedicle. No compression fractures are seen. IMPRESSION: Stable 4 millimeter right middle lobe nodule. Interval increase in size and extent of bony metastatic lesions.
[2019-05-04 14:19] LABS: Testosterone, Total <7.0 ng/dL (240-950)
[2019-05-04 15:43] LABS: PSA, Diagnostic 151.2 ng/mL (0.0-4.5)
== END 2019-05-02 01:07 ==
PROVIDERS: PCP Family Medicine; Visit Provider Internal Medicine
DX: C61 Malignant neoplasm of prostate (principal); C79.51 Secondary malignant neoplasm of bone; R91.1 Solitary pulmonary nodule; K40.90 Unilateral inguinal hernia, without obstruction or gangrene, not specified as recurrent
CPT/HCPCS: 74177; 80053; 84403; 71260; 84153; 85025; J3490; Q9967

== ENCOUNTER 2019-06-04 11:27 | Outpatient (CLI) | payer MEDICAID, SELFPAY ==
[2019-06-04 12:17] LABS: Abs Immature Grans 0.14 k/cumm (0.0-0.09); Absolute Basophil Count 0.05 k/cumm (0.0-0.2); Absolute Eosinophil Count 0.01 k/cumm (0.0-0.7); Absolute Lymphocyte Count 0.78 k/cumm (1.2-3.4); Absolute Neutrophil Count 6.87 k/cumm (1.2-6.7); Basophils % 0.6; Eosinophils % 0.1; HCT 39.4 % (40.0-50.0); HGB 13.3 g/dL (13.5-17.5); Immature Grans % 1.7 %; Lymphocytes % 9.3; Mean Corp. HGB Concentration 33.8 g/dL (32.0-36.0); Mean Corpuscular Hemoglobin 27.7 pg (27.0-33.0); Mean Corpuscular Volume 81.9 fL (80-95); Mean Platelet Volume 8.9 fL (8.0-11.0); Neutrophils % 82.3; Platelet Count 245 x1000/uL (130-400); RBC 4.81 m/cumm (4.50-6.00); RBC Distribution Width 12.9 % (11.8-14.1); White Blood Cell Count 8.35 k/cumm (4.4-10.8)
[2019-06-04 12:49] LABS: ALT 17 U/L (16-63); AST 36 U/L (15-37); Albumin 4.1 g/dL (3.4-5.0); Alkaline Phosphatase 151 U/L (46-116); BUN 10 mg/dL (7-18); Bilirubin, Total 0.3 mg/dL (0.2-1.0); CREATININE 0.86 mg/dL (0.70-1.30); Chloride 102 mmol/L (98-107); Glucose 114 mg/dL (74-106); Potassium 4.5 mmol/L (3.5-5.1); Sodium 140 mmol/L (136-145); Total Protein 7.9 g/dL (6.4-8.2)
[2019-06-05 13:19] LABS: PSA, Ultrasensitive 251 ng/mL (<= 4.5)
[2019-06-07 07:38] LABS: Testosterone, Total <7.0 ng/dL (240-950)
== END 2019-06-04 11:47 ==
PROVIDERS: PCP Family Medicine; Visit Provider Internal Medicine
DX: C61 Malignant neoplasm of prostate (principal); C79.51 Secondary malignant neoplasm of bone
CPT/HCPCS: 36415; 80053; 84153; 84403; 85025

== ENCOUNTER 2019-06-25 08:35 | Outpatient (CLI) | payer MEDICAID, SELFPAY ==
[2019-06-25 11:38] LABS: Abs Immature Grans 0.13 k/cumm (0.0-0.09); Absolute Basophil Count 0.05 k/cumm (0.0-0.2); Absolute Eosinophil Count 0.02 k/cumm (0.0-0.7); Absolute Lymphocyte Count 0.71 k/cumm (1.2-3.4); Absolute Monocyte Count 0.48 k/cumm (0.11-0.7); Absolute Neutrophil Count 8.03 k/cumm (1.2-6.7); Basophils % 0.5; Eosinophils % 0.2; HCT 35.3 % (40.0-50.0); HGB 11.7 g/dL (13.5-17.5); Immature Grans % 1.4 %; Lymphocytes % 7.5; Mean Corp. HGB Concentration 33.1 g/dL (32.0-36.0); Mean Corpuscular Hemoglobin 27.8 pg (27.0-33.0); Mean Corpuscular Volume 83.8 fL (80-95); Monocytes % 5.1; Neutrophils % 85.3; Platelet Count 240 x1000/uL (130-400); RBC 4.21 m/cumm (4.50-6.00); RBC Distribution Width 14.3 % (11.8-14.1); White Blood Cell Count 9.42 k/cumm (4.4-10.8)
[2019-06-25 11:48] LABS: ALT 21 U/L (16-63); AST 62 U/L (15-37); Albumin 3.8 g/dL (3.4-5.0); Alkaline Phosphatase 140 U/L (46-116); Anion Gap 8.4 mmol/L (3-11); BUN 11 mg/dL (7-18); Bilirubin, Total 0.3 mg/dL (0.2-1.0); CO2 29.6 mmol/L (21.0-32.0); CREATININE 0.86 mg/dL (0.70-1.30); Calcium 8.5 mg/dL (8.5-10.1); Chloride 103 mmol/L (98-107); Glucose 125 mg/dL (74-106); Potassium 4.1 mmol/L (3.5-5.1); Sodium 141 mmol/L (136-145); Total Protein 7.5 g/dL (6.4-8.2)
[2019-06-26 13:47] LABS: PSA, Ultrasensitive 421 ng/mL (<= 4.5)
[2019-06-27 12:36] LABS: Testosterone, Total <7.0 ng/dL (240-950)
== END 2019-06-25 08:55 ==
PROVIDERS: PCP Family Medicine; Visit Provider Internal Medicine
DX: C61 Malignant neoplasm of prostate (principal); C79.51 Secondary malignant neoplasm of bone
CPT/HCPCS: 36415; 80053; 84153; 84403; 85025

== ENCOUNTER 2019-07-09 19:34 | Emergency (ER) | payer MEDICAID, SELFPAY ==
[2019-07-09 19:39] VITALS: BP 144/102; PULSE 107; RESP 18; TEMP 37.2; O2SAT 95
--- NOTE | 2019-07-09 19:58 | W.ED.GENAD ---
Discharge Plan Disposition Patient Disposition: HOME Condition: Fair Discharge Details Chief Complaint: Fever Clinical Impression: UTI (urinary tract infection) Primary Care Provider: Shara Begum ED Provider: Isaura Trammell Home Meds and New Rx's Prescriptions: New cephalexin [Keflex] 500 mg capsule 500 mg PO BID Qty: 10 RF: 0 Continued potassium chloride 20 mEq tablet extended release 20 meq PO DAILY RF: 0 prochlorperazine maleate 10 mg tablet 10 mg PO Q6H PRNRF: 0 ondansetron HCl 4 mg tablet 4 mg PO Q8H PRNRF: 0 dexamethasone 4 mg tablet 8 mg PO BID RF: 0 Lupron Depot (3 month) 22.5 mg syringe kit 22.5 mg IM [id number] RF: 0 denosumab 120 mg/1.7 mL (70 mg/mL) solution 120 mg SC .[id number] RF: 0 (DME) blood-glucose meter misc See Dose Instructions .ROUTE .MEDSUPPLY Qty: 1 RF: 0 (DME) Blood Glucose Test strip See Dose Instructions .ROUTE .MEDSUPPLY Qty: 100 RF: 5 (DME) lancets 25 gauge misc See Dose Instructions .ROUTE .MEDSUPPLY Qty: 100 RF: 4 tamsulosin 0.4 mg capsule 0.8 mg PO DAILY Qty: 180 RF: 4 Discharge Instructions Instructions: Urinary Tract Infection in Men (ED) Additional Instructions: Encourage water intake. Please take Keflex as prescribed. You will need to have your liver enzymes rechecked once again, please keep your upcoming appointment. If you develop fevers please contact oncology once again. If you develop any other new/worsening symptoms please seek care urgently once again. Referrals: Shara Begum MD, [place] [Primary Care Provider] - Discharge Data Discharge Date/Time-TO BE ENTERED AT DEPARTURE: 07/09/19 23:05 Medical Decision Making Patient is a pleasant 64 year old male presenting today with concern for neutropenic fever. Patient currently receiving chemotherapy for metastatic prostate cancer. Noted fever this afternoon prior to coming in. Contacted oncology who advised they be evaluated as there is concern for possible neutropenic fever. Patient does receive Neupogen after his chemotherapeutic dosing. He reports that otherwise at this time he is feeling quite well. Patient reports that he does self cath and has noticed some discomfort in his bladder particularly after catheterization. He has been feeling like his bladder is still full. On exam, patient appears nontoxic. Lungs are clear. Normal cardiac exam. Normal HEENT exam. Abdomen is benign. No CVA tenderness. FINDINGS: Lungs: Lungs are adequately inflated and symmetric. No focal consolidation or pulmonary edema. Pleural space: No pleural effusion. No pneumothorax. Heart/Mediastinum: Cardiomediastinal contours within normal limits. Bones/joints: No acute osseous finding. Soft tissues: Circumscribed, ovoid 7 mm calcification projecting over the medial right upper quadrant, likely gallstone. Otherwise no focal soft tissue abnormailty. IMPRESSION: No focal consolidative airspace disease. Labs are reviewed, white count of 21, hemoglobin of 11.9, absolute neutrophil 18. CMP significant for elevated AST of 175. This is up from 62 on 06/25/2019. Urinalysis concerning for 20-50 WBCs per high-power field, few bacteria. With the elevation of the liver enzymes, will send a hepatitis panel. Patient's leukocytosis and elevated neutrophil count is likely associated with the patient's Neupogen. This does rule out neutropenic fever. I am concerned however for urinary tract infection. He does not exhibit signs of pyelonephritis on exam. Consulted with Dr. Bennett with oncology at [facility]. We did discuss the patient's elevated liver enzymes. I am concerned that this is related to his chemotherapeutic agent. She advised that they will continue to monitor this and likely it is associated with the medication. She agrees with treating the patient for UTI and agreed with the use of Keflex. I discussed this plan with the patient and his . He has an appointment next week at which time his labs to be rechecked. He was given strict return precautions. Encourage water intake. We did discuss how to help reduce the risk of urinary tract infections in the future. All of his questions and concerns were addressed and he is in agreement this plan. HPI General Mode of arrival: ambulatory. Date/Time Provider Initiated Documentation: 07/09/19 19:35. Limitations to Documentation: no limitations. Information obtained by: patient, family () and RN notes reviewed*. HPI Narrative: Patient is a pleasant 64 year old male presenting today with c/c of fever. Patient is currently receiving chemo for metastatic prostate cancer, last received treatment 06/27/2019. Received neupogen the following day. noted fever of 100.8* at home prior to arrival. Patient was feeling fatigued and achy at that time prompting the evaluation. He denies any cough. She denies any chest pain. No recent travel. No known sick contacts. No abdominal pain. Denies any diarrhea. Patient does report that he straight caths daily as he has had long history of urinary retention. He is concerned that he may have a UTI as he has been having a full sensation even after straight cath. When he does urinate normally, he has not been having any dysuria. Has not noted any change in the odor or color of his urine. He does do the straight cath without gloves but states that he washes his hands prior to procedure. Related Data Home Medications Medication Instructions Recorded Confirmed blood sugar diagnostic #100 each 08/04/18 06/04/19 blood-glucose meter #1 each 08/04/18 06/04/19 lancets 25 gauge #100 each 08/04/18 06/04/19 denosumab 120 mg/1.7 mL (70 mg/mL) 120 mg SC .[id number] ml 08/21/18 06/04/19 subcutaneous solution leuprolide (3 month) 22.5 mg (3 22.5 mg IM [id number] 08/21/18 06/04/19 month) intramuscular syringe kit tamsulosin 0.4 mg capsule 0.8 mg PO DAILY #180 tab-cap 12/21/18 06/04/19 dexamethasone 4 mg tablet 8 mg PO BID tab 06/04/19 06/04/19 ondansetron HCl 4 mg tablet 4 mg PO Q8H PRN 06/04/19 06/04/19 potassium chloride 20 mEq 20 meq PO DAILY 06/04/19 06/04/19 tablet,extended release prochlorperazine maleate 10 mg 10 mg PO Q6H PRN 06/04/19 06/04/19 tablet cephalexin [Keflex] 500 mg PO BID #10 cap 07/09/19 Previous Rx's Medication Instructions Recorded blood sugar diagnostic #100 each 08/04/18 blood-glucose meter #1 each 08/04/18 lancets 25 gauge #100 each 08/04/18 tamsulosin 0.4 mg capsule 0.8 mg PO DAILY #180 tab-cap 12/21/18 cephalexin [Keflex] 500 mg PO BID #10 cap 07/09/19 Allergies Allergy/AdvReac Type Severity Reaction Status Date / Time No Known Allergies Allergy Verified 07/09/19 19:46 General Stated Complaint: Fever ERNESTINE: 3 Review of Systems Constitutional Constitutional: Reports as per HPI, Denies chills, Denies fatigue, Reports fever(s), Denies headache(s), Denies poor appetite and Reports weight gain Eyes Eyes: Reports as per HPI, Denies eye discharge and Denies irritation ENT Ears, Nose, Mouth, and Throat: Reports as per HPI and Denies headache(s) Cardiovascular Cardiovascular: Reports as per HPI, Denies chest pain and Denies dyspnea Respiratory Respiratory: Reports as per HPI, Denies chest congestion, Denies cough, Denies hemoptysis, Denies dyspnea and Denies wheezing Gastrointestinal Gastrointestinal: Reports as per HPI, Denies abdominal pain, Denies change in bowel habits, Denies nausea and Denies vomiting Genitourinary Genitourinary: Reports difficulty urinating (chronic, self caths), Denies genital lesions, Denies genital pain, Denies flank pain and Denies penile discharge Integumentary/Breasts Skin/Breast: Reports as per HPI and Denies rash Neurologic Neurologic: Reports as per HPI and Denies headache(s) Endocrine Endocrine: Denies fatigue Allergic/Immunologic Allergic/Immunologic: Denies wheezing [facility] Medical History (Updated 07/09/19 @ 22:51 by ANTHONY Bahena) Acute lumbar radiculopathy (Inactive 05/24/17) Annual physical exam (Resolved 06/10/15) Capsulitis of left hip (Chronic 05/31/17) Chronic right shoulder pain (Chronic 11/15/17) Diabetes mellitus (Chronic) Elevated blood pressure reading (Inactive 06/10/15) Elevated blood pressure reading in office with diagnosis of hypertension (Resolved) 06/10/15 Fatigue (Resolved) Fatigue (Inactive) Gastroesophageal reflux disease (Chronic 02/02/17) Hypertensive heart disease without heart failure (Chronic 07/07/15) LVH on echo stress test - elevated BP Low back pain (Inactive) Lumbago (Resolved) Lumbar radiculopathy, acute (Resolved) 05/24/17 Near syncope (Chronic 07/03/15) ekg, echo, ett, carotids all normal Neck swelling (Resolved) 06/30/15 Neck swelling (Inactive 06/30/15) Obstructive sleep apnea syndrome (Chronic 01/12/16) Plantar fasciitis (Resolved) 11/08/14 Plantar fasciitis (Inactive 11/08/14) Prostate cancer metastatic to bone (Chronic 11/15/17) Tear of rotator cuff (Resolved) 11/26/09 right Tear of rotator cuff (Inactive 11/26/09) Social History (Updated 08/22/18 @ 10:51 by Osmany Hoang) Smoking/Tobacco Use Status: Never Second Hand Exposure: No Alcohol Intake: former Substance use type: unknown Household members: spouse Housing: house Pets and animals: Yes Pets and animals: cat(s) and dog(s) Sexually active: No Do you think of yourself as: straight/heterosexual Current gender identity: male What is your relationship status?: How often do you talk on the phone with friends or family?: three or more times per week How often do you get together with friends or relatives?: once per week How often do you attend anabaptist or confucianist services?: 4 or more times per year Do you belong to any clubs or organized social groups?: yes Panel score (0-1 are the most socially isolated patients): 4 What type of physical activity do you participate in: bicycling and other Details: Personal training Duration: 45-60 minutes/day Frequency: 3-4 times per week Cele/Zoroastrian: Adventist Special cele needs: No Seatbelt use: always Helmet use: Yes Drive intox or ride w/intox bus driver school: No Do you feel safe at home: Yes Do you feel safe in your relationship?: Yes Exam Const General: cooperative, healthy appearing, comfortable, no acute distress, well developed and well groomed Nutritional Appearance: average body habitus and well nourished Orientation: alert and awake [facility] Head: normal to inspection, normocephalic and atraumatic Ears: hearing grossly normal bilaterally, external ears normal and TM's normal bilaterally General nose exam: external nose normal and nares normal Face and sinus: normal facial exam, sinuses nontender and face symmetric Mouth: oral mucosae normal, lip normal, tongue normal, oropharynx normal and moist mucous membranes Teeth and gingiva: dentition normal Throat: posterior oropharynx normal, tonsils normal and uvula midline Eyes General: appearance normal, both eyes and all related structures Neck Neck: normal visual inspection, full ROM, no lymphadenopathy and no meningeal signs Resp Effort & Inspection: normal respiratory effort, able to speak in complete sentences and no respiratory distress Auscultation: clear to auscultation bilaterally, no rales, no rhonchi and no wheezes Cardio Rate: regular rate Rhythm: regular rhythm Heart Sounds: S1 normal and S2 normal GI Inspection: normal to inspection, no edema and non-distended Palpation: soft, no hepatosplenomegaly, not firm, no guarding, not rigid and nontender Percussion: normal to percussion Auscultation: normal bowel sounds Back/Spine/Pelvis Back: no CVA tenderness Skin General skin exam: no rashes or lesions noted Neuro General: alert and awake Cognition: normal cognition Speech: speech normal Gait: normal gait Psych Appearance: grossly normal and well kempt Mental Status: mental status grossly normal Speech and Movement: speech and movement normal Course Vital Signs Vital signs: Vital Signs Temperature 37.2 C 07/09/19 19:39 Pulse 107 H 07/09/19 19:39 Respiratory Rate 18 07/09/19 19:39 Blood Pressure 144/102 H 07/09/19 19:39 Pulse Oximetry 95 07/09/19 19:39 Temperature 37.2 C 07/09/19 19:39 Temperature Source Skin 07/09/19 19:39 Pulse 107 H 07/09/19 19:39 Respiratory Rate 18 07/09/19 19:39 Respiratory Effort Non-Labored 07/09/19 19:41 Blood Pressure 144/102 H 07/09/19 19:39 Blood Pressure Position Sitting 07/09/19 19:39 Pulse Oximetry 95 07/09/19 19:39 Oxygen Delivery Method Room Air 07/09/19 19:39 Oxygen Flow Rate 0 07/09/19 19:39 Pain Level 0 07/09/19 19:39
[2019-07-09 20:02] LABS: Bilirubin Negative (Negative); Blood Small (Negative); Clarity Clear (Clear); Glucose Negative (Negative); Ketones Negative (Negative); Leukocyte Esterase Negative (Negative); Nitrite Negative (Negative); Specific Gravity 1.015 (1.005-1.025); Urobilinogen 0.2 EU/dL (Up TO 0.2)
[2019-07-09 20:19] LABS: Abs Immature Grans 2.26 k/cumm (0.0-0.09); HCT 36.3 % (40.0-50.0); HGB 11.9 g/dL (13.5-17.5); Mean Corp. HGB Concentration 32.8 g/dL (32.0-36.0); Mean Corpuscular Volume 85.4 fL (80-95); Mean Platelet Volume 9.3 fL (8.0-11.0); Platelet Count 155 x1000/uL (130-400); RBC 4.25 m/cumm (4.50-6.00); RBC Distribution Width 15.7 % (11.8-14.1); White Blood Cell Count 21.44 k/cumm (4.4-10.8)
[2019-07-09 20:23] LABS: Bacteria Few HPF (Negative); C & S Indicated? Yes; Casts Negative LPF (Negative); Crystals Negative HPF (Negative); Epithelial Cells Few HPF (Negative); Mucus Trace (Negative); RBC 0-2 HPF (0-2); WBC 20-50 HPF (0-5)
[2019-07-09 20:31] LABS: ALT 26 U/L (16-63); AST 175 U/L (15-37); Albumin 3.8 g/dL (3.4-5.0); Alkaline Phosphatase 222 U/L (46-116); Anion Gap 7.1 mmol/L (3-11); BUN 9 mg/dL (7-18); Bilirubin, Total 0.3 mg/dL (0.2-1.0); CO2 28.9 mmol/L (21.0-32.0); Calcium 8.5 mg/dL (8.5-10.1); Chloride 104 mmol/L (98-107); Glucose 120 mg/dL (74-106); Potassium 4.1 mmol/L (3.5-5.1); Sodium 140 mmol/L (136-145); Total Protein 7.2 g/dL (6.4-8.2)
[2019-07-09 20:46] LABS: Absolute Lymphocyte Count 1.93 k/cumm (1.2-3.4); Absolute Monocyte Count 1.07 k/cumm (0.11-0.7); Absolute Neutrophil Count 18.01 k/cumm (1.2-6.7)
[2019-07-09 20:47] LABS: Diff Comment Manual Differential
[2019-07-09 20:48] LABS: Anisocytosis 1+; Basophilic Stippling 1+
--- NOTE | 2019-07-09 21:12 | DI.RAD_ITS ---
EXAM: XR CHEST 2V PA LATERAL CLINICAL HISTORY: concern for neutropenic fever TECHNIQUE: 2D digital imaging was performed. COMPARISON: No exams were available for comparison FINDINGS: The cardiac and mediastinal contours have a normal appearance. The lungs are well inflated and clear . No infiltrate, effusion or pneumothorax is seen. No spine or rib fracture is identified. IMPRESSION: Negative chest x-ray.
--- NOTE | 2019-07-09 21:34 | DI.VRAD_ITS ---
PROCEDURE INFORMATION: Exam: XR Chest, 2 Views Exam date and time: 07/09/2019 9:14 PM Age: 64 years old Clinical indication: Patient HX: Concern for neutropenic fever TECHNIQUE: Imaging protocol: XR of the chest Views: 2 views. COMPARISON: CT CHEST/ABD/PEL W 05/02/2019 1:23 PM FINDINGS: Lungs: Lungs are adequately inflated and symmetric. No focal consolidation or pulmonary edema. Pleural space: No pleural effusion. No pneumothorax. Heart/Mediastinum: Cardiomediastinal contours within normal limits. Bones/joints: No acute osseous finding. Soft tissues: Circumscribed, ovoid 7 mm calcification projecting over the medial right upper quadrant, likely gallstone. Otherwise no focal soft tissue abnormailty. IMPRESSION: No focal consolidative airspace disease. Dictated and Authenticated by: Cameron Lowe MD. Ordering:BLANE Delarosa MD
[2019-07-09] MEDS: Cephalexin 500 MG CAP 1000 MG PO (22:52)
[2019-07-09 23:04] VITALS: BP 131/99; PULSE 101; RESP 18; TEMP 37.2; O2SAT 95
[2019-07-11 11:52] LABS: Hepatitis A Antibody IgM Negative (Negative); Hepatitis B Core Antibody Negative (Negative); Hepatitis B surface Ag Negative (Negative); Hepatitis C Ab w Rflx HCV PCR Negative (Negative)
== END 2019-07-09 23:05 | disposition home or self-care (01) ==
PROVIDERS: Emergency Provider Physician Assistant; PCP Family Medicine
DX: N39.0 Urinary tract infection, site not specified (principal); R74.8 Abnormal levels of other serum enzymes; C61 Malignant neoplasm of prostate; Z79.899 Other long term (current) drug therapy; E11.9 Type 2 diabetes mellitus without complications
CPT/HCPCS: 36410; 36415; 80053; 86704; 86709; 86803; 87040; 87340; 87449; 99284; 71046; 81003; 81015; 83605; 85025; 87086

== ENCOUNTER 2019-07-16 08:29 | Outpatient (CLI) | payer MEDICAID, SELFPAY ==
[2019-07-16 08:50] LABS: HCT 32.2 % (40.0-50.0); HGB 10.5 g/dL (13.5-17.5); Mean Corp. HGB Concentration 32.6 g/dL (32.0-36.0); Mean Corpuscular Volume 85.9 fL (80-95); Mean Platelet Volume 8.7 fL (8.0-11.0); Platelet Count 166 x1000/uL (130-400); RBC 3.75 m/cumm (4.50-6.00); RBC Distribution Width 15.6 % (11.8-14.1)
[2019-07-16 09:17] LABS: ALT 38 U/L (16-63); AST 86 U/L (15-37); Albumin 3.6 g/dL (3.4-5.0); Alkaline Phosphatase 187 U/L (46-116); Anion Gap 10.3 mmol/L (3-11); BUN 13 mg/dL (7-18); Bilirubin, Total 0.3 mg/dL (0.2-1.0); CO2 26.7 mmol/L (21.0-32.0); CREATININE 0.86 mg/dL (0.70-1.30); Calcium 8.3 mg/dL (8.5-10.1); Chloride 105 mmol/L (98-107); Glucose 91 mg/dL (74-106); Sodium 142 mmol/L (136-145); Total Protein 6.9 g/dL (6.4-8.2)
[2019-07-16 09:26] LABS: Absolute Basophil Count 0.08 k/cumm (0.0-0.2); Absolute Eosinophil Count 0.08 k/cumm (0.0-0.7); Absolute Lymphocyte Count 1.31 k/cumm (1.2-3.4); Absolute Monocyte Count 0.77 k/cumm (0.11-0.7); Absolute Neutrophil Count 5.16 k/cumm (1.2-6.7); Diff Comment Diff Reviewed; RBC Morphology Normal
[2019-07-17 13:29] LABS: PSA, Ultrasensitive 818 ng/mL (<= 4.5)
[2019-07-19 07:40] LABS: Testosterone, Total <7.0 ng/dL (240-950)
== END 2019-07-16 08:49 ==
PROVIDERS: PCP Family Medicine; Visit Provider Internal Medicine
DX: C61 Malignant neoplasm of prostate (principal); C79.51 Secondary malignant neoplasm of bone
CPT/HCPCS: 36415; 80053; 84153; 84403; 85025

== ENCOUNTER 2019-10-30 17:46 | Outpatient (REF) | payer MEDICAID, SELFPAY ==
[2019-10-30 17:56] LABS: Bilirubin Negative (Negative); Blood Small (Negative); Clarity Clear (Clear); Glucose Negative (Negative); Ketones Negative (Negative); Leukocyte Esterase Small (Negative); Nitrite Negative (Negative)
[2019-10-30 18:29] LABS: Bacteria Few HPF (Negative); C & S Indicated? Yes; Casts Negative LPF (Negative); Crystals Negative HPF (Negative); Epithelial Cells Negative HPF (Negative); Mucus Negative (Negative); RBC >50 HPF (0-2); WBC >50 HPF (0-5)
== END 2019-10-30 18:06 ==
LOC: LBN 17:46
PROVIDERS: PCP Family Medicine; Visit Provider Family Medicine
DX: N39.0 Urinary tract infection, site not specified (principal)
CPT/HCPCS: 81003; 81015; 87086